=== PATIENT | female | born 1950 | race Caucasian/White ===

== ENCOUNTER 2020-04-15 14:24 | Outpatient (CLI) | payer MEDICARE, OTHER ==
[2020-04-15 18:26] LABS: #Eosinphils 0.2 thou/uL (0.0-0.7); #Lymphocytes 2.2 thou/uL (1.20-3.40); #Monocytes 0.6 thou/uL (0.11-0.59); #Neutrophils 4.7 thou/uL (1.40-6.50); %Basophils 0.1 % (0.0-1.0); %Eosinophils 3.2 % (0.0-10.0); %Lymphocytes 28.8 % (21.0-51.0); %Monocytes 7.4 % (0.0-10.0); %Neutrophils 60.5 % (42.0-75.0); Hemoglobin 12.3 g/dL (12.0-16.0); Mean Corpuscular HGB CONC 32.7 g/dL (32.0-36.0); Mean Corpuscular Hemoglobin 29.2 pg (27.0-31.0); Mean Corpuscular Volume 89.2 fL (78.0-98.0); Mean Platelet Volume 9.8 fL (7.4-10.4); Platelet Count 219 thou/uL (130-400); RBC Distribution Width 11.8 % (11.5-14.5); Red Blood Cell (RBC) Count 4.22 mill/uL (4.20-5.40); White Blood Cell (WBC) Count 7.7 thou/uL (4.8-10.8)
[2020-04-15 18:35] LABS: INR-International Normal Ratio 0.9; Prothrombin Time 11.7 sec (12.0-14.7)
[2020-04-15 18:38] LABS: Anion Gap 14 mmol/L (10-20); BUN (Urea Nitrogen) 18 mg/dL (9.8-20.1); Calc. Creatinine Clearance 0 mL/min (70-130); Calcium 9.1 mg/dL (7.8-10.44); Carbon Dioxide 25 mmol/L (23-31); Chloride 105 mmol/L (98-107); Estimated GFR-MDRD 88; Glucose 95 mg/dL (80-115); Potassium 3.7 mmol/L (3.5-5.1); Sodium 140 mmol/L (136-145)
[2020-04-16 13:30] LABS: SARS-CoV-2 MS2 Positive; SARS-CoV-2 N Gene Negative; SARS-CoV-2 S Gene Negative; SARS-CoV-2 by NAA Not Detected (NotDetected); SARS-CoV-2 orf1ab Negative
== END 2020-04-15 14:25 | disposition home or self-care (01) ==
LOC: LABBT 14:24
PROVIDERS: ATTEND Urology
DX: Z01.818 Encounter for other preprocedural examination (principal); Z20.828 Contact with and (suspected) exposure to other viral communicable diseases; N20.0 Calculus of kidney
CPT/HCPCS: 80048; 85025; 85610; 85730; 93005; U0003; 87635; 93010

== ENCOUNTER 2020-04-17 06:02 | Day surgery (SDC) | payer MEDICARE, OTHER ==
[2020-04-16 09:56] VITALS: BMI 26.6
[2020-04-17] MEDS ORDERED: Iothalamate Meglumine 60% 50 ML VIAL FS ONE (06:34)
[2020-04-17] MEDS ORDERED: Levofloxacin 500 mg/D5W 100 ml Premix Bag ONE (06:34)
[2020-04-17] MEDS ORDERED: Fentanyl 100 MCG/2 ML VIAL ONE (06:38)
[2020-04-17] MEDS ORDERED: Ketorolac Tromethamine 30 MG/ML VIAL ONE (08:04)
[2020-04-17] MEDS ORDERED: Oxybutynin 5 MG TAB ONE (08:05)
[2020-04-17] MEDS ORDERED: traMADol HCl 50 MG TAB ONE (09:13)
--- NOTE | 2020-04-17 09:44 | RAD ---
RADIOGRAPH ABDOMEN 1 VIEW: Date: 04/17/2020 Time: 0650 hours HISTORY: 69-year-old female with left ureteral stent. COMPARISON: No prior imaging studies of any modality of the abdomen or pelvis is available. FINDINGS: Two small [id number] fluoroscopic spot images of the left hemipelvis and left abdomen demonstrate a left ureteral stent. The upper curl is not formed. The upper tip is in the left upper quadrant. The lower curl is formed in the lower left hemipelvis. Multiple surgical clips are visualized in the lef t hemipelvis and adjacent to the mid portion of the stent. IMPRESSION: Left ureteral stent, with upper curl not formed. POS: [facility]
[2020-04-17] MEDS ORDERED: Dexamethasone 20 MG/5 ML VIAL ONE (14:50)
[2020-04-17] MEDS ORDERED: PROPOFOL 200 MG/20 ML VIAL ONE (14:50)
[2020-04-17] MEDS ORDERED: Ondansetron PF 4 MG/2 ML Vial ONE (14:50)
[2020-04-17] MEDS ORDERED: Lidocaine 1% PF 5 ML VIAL ONE (14:50)
--- NOTE | 2020-04-18 12:53 | OP ---
DATE OF PROCEDURE: 04/17/2020 PREOPERATIVE DIAGNOSIS: Left ureteral stone. POSTOPERATIVE DIAGNOSIS: Left ureteral stone. PROCEDURES PERFORMED: Left ureteroscopy with laser lithotripsy, basket extraction of stone, retrograde pyelogram, 6 x 24 double-J ureteral stent. ANESTHESIA: General. COMPLICATIONS: None. ESTIMATED BLOOD LOSS: None. SPECIMEN: Left stone fragments. DESCRIPTION OF PROCEDURE: After informed consent, the patient was taken to the operating room, transferred to the table under her own power. Anesthesia was established. A time-out was performed, showing the correct patient, site, and procedure. Preoperative antibiotics were administered. She was prepped and draped in the lithotomy position. The rigid ureteroscope was advanced through the urethra into the bladder and the left ureteral orifice cannulated with a wire, which was passed up to the level of the renal pelvis under fluoroscopic guidance. The scope was withdrawn and reinserted alongside the wire into the distal ureter, where a retrograde pyelogram was performed showing good filling of the ureter up to the level of the mid to proximal ureter and hydronephrosis beyond. The scope was then passed up to the transition point, where the stone was identified. This was treated with a 365 micron laser fiber and trimmed down to one small piece. This piece was removed with the 1.9 cm Nitinol basket. The scope was reinserted and passed up to the level of the renal pelvis, noting no further clinically significant stone fragments or abnormalities. A completion retrograde was performed and then a 6 x 24 double-J ureteral stent passed over the wire with a curl in the kidney and curl in the bladder under fluoroscopic guidance. The bladder was then drained. She was awoken from anesthesia, transferred back to her hospital bed, and taken to PACU in stable condition, where she was discharged home upon recovery. Job ID: [id number]
== END 2020-04-17 09:30 | disposition home or self-care (01) ==
LOC: SDC 06:02
PROVIDERS: ATTEND Urology
PROC: 0TC48ZZ Extirpation of Matter from Left Kidney Pelvis, Via Natural or Artificial Opening Endoscopic (ICD-10-PCS; principal; 2020-04-17)
PROC: 0T778DZ Dilation of Left Ureter with Intraluminal Device, Via Natural or Artificial Opening Endoscopic (ICD-10-PCS; 2020-04-17)
DX: N13.2 Hydronephrosis with renal and ureteral calculous obstruction (principal); I10 Essential (primary) hypertension; E78.5 Hyperlipidemia, unspecified; F32.9 Major depressive disorder, single episode, unspecified; G25.81 Restless legs syndrome; Z79.899 Other long term (current) drug therapy; Z85.3 Personal history of malignant neoplasm of breast; Z87.891 Personal history of nicotine dependence
CPT/HCPCS: 74018; 76000; 82365; 88300; J1100; J1885; J1956; J2405; J2704; J3010